=== PATIENT | male | born 1965 | race American Indian/Alaskan Native ===

== ENCOUNTER 2016-10-06 22:17 | Emergency (ER) | payer SELFPAY ==
--- NOTE | 2016-10-06 22:41 | ED PDOC ---
Arrival/HPI - General Historian: Patient - History of Present Illness Time/Duration: Other (3 days) Quality: Aching Context: Work - General Chief Complaint: Upper Extremity Problem/Injury Time Seen by Provider: 10/06/16 22:24 - History of Present Illness Narrative History of Present Illness (Text): 10/06/16 22:37 This 50 yo male presents to this ED c/o left mid forearm, swollen area x 3 days. 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 Wound was bleeding. He applied pressure, and bleeding was controlled. He stated there was an area of swelling on his forearm, with pain. Last tetanus is UKN. Patient has FROM on his extremities. Denies other complains. (Malcolm Arredondo) Past Medical History - Provider Review Nursing Documentation Reviewed: Yes - Psychiatric Hx Substance Use: No Family/Social History - Physician Review Nursing Documentation Reviewed: Yes Family/Social History: No Known Family HX Smoking Status: Former Smoker Hx Alcohol Use: No Hx Substance Use: No Allergies/Home Meds Allergies/Adverse Reactions: Allergies No Known Allergies Allergy (Verified 10/06/16 22:34) Review of Systems - Review of Systems Constitutional: Normal. absent: Fatigue, Weight Change, Fevers, Night Sweats Eyes: Normal. absent: Vision Changes ENT: Normal Respiratory: Normal. absent: SOB, Cough, Sputum, Wheezing Cardiovascular: Normal. absent: Chest Pain, Palpitations Gastrointestinal: Normal Genitourinary Male: Normal. absent: Dysuria, Frequency, Hematuria Musculoskeletal: Normal Skin: Other ((+) left forearm puncture wound.). absent: Rash, Pruritis Neurological: Normal. absent: Headache, Dizziness, Focal Weakness, Gait Changes , Speech Changes, Facial Droop Endocrine: Normal Hemo/Lymphatic: Normal Psychiatric: Normal Physical Exam Temperature: Afebrile Blood Pressure: Normal Pulse: Regular Respiratory Rate: Normal Appearance: Positive for: Well-Appearing, Non-Toxic, Comfortable Pain Distress: None Mental Status: Positive for: Alert and Oriented X 3 - Systems Exam Head: Present: Atraumatic, Normocephalic Pupils: Present: PERRL Extroacular Muscles: Present: EOMI Conjunctiva: Present: Normal Mouth: Present: Moist Mucous Membranes Neck: Present: Normal Range of Motion Back: Present: Normal Inspection Upper Extremity: Present: Normal ROM, NORMAL PULSES, Neurovascularly Intact, Capillary Refill < 2s, Other ((+) 1 cm left mid forearm, mid area, swelling. No cellulitis, or abscess.. N/V intact. No neuro focal deficits of left UE. Sensory and motor are normal. ). No: Cyanosis, Edema, Swelling, Erythema, Temperature Abnormalties, Deformity Lower Extremity: Present: Normal Inspection, NORMAL PULSES, Normal ROM, Neurovascularly Intact, Capillary Refill < 2 s. No: CALF TENDERNESS Neurological: Present: GCS=15, CN II-XII Intact, Speech Normal, Motor Func Grossly Intact, Normal Sensory Function, Normal Cerebellar Funct, Gait Normal, Memory Normal Skin: Present: Warm, Dry, Normal Color. No: Rashes Psychiatric: Present: Alert, Oriented x 3 Vital Signs Temp Pulse Resp BP Pulse Ox 10/06/16 22:30 98.2 F 82 16 148/95 H 98 Medical Decision Making Re-evaluation Time: 23:29 Reassessment Condition: Re-examined, Improved ED Course and Treatment: I was available for consultation during PA evaluation. The chart was reviewed by me, and I agree with disposition. The documented history was done by the physician recruit instructor. The documented physical exam was done by the physician recruit instructor. The documented procedures were done by the physician recruit instructor. (Gabriele Rodriguez) 10/06/16 23:28 FB was removed. patient tolerated procedure well. post procedure, sensory and motor on left UE are normal. n/v intact (Malcolm Arredondo) - RAD Interpretation Narrative RAD Interpretations (Text): 10/06/16 23:00 Forearm x-rays: (+) FB (Malcolm Arredondo) Radiology Orders: 10/06/16 22:46 FOREARM LEFT [RAD] Stat 10/06/16 23:26 FOREARM LEFT [RAD] Stat - Medication Orders Current Medication Orders: Discontinued Medications Amoxicillin/Clavulanate Potassium (Augmentin 875 Mg-125 Mg Tab) 1 tab PO STAT STA PRN Reason: Protocol Stop: 10/06/16 23:27 Last Admin: 10/06/16 23:41 Dose: 1 tab Tetanus/Reduced Diphtheria/Acell Pertussis (Boostrix Vaccine Inj) 0.5 ml IM .ONCE ONE Stop: 10/06/16 22:47 Last Admin: 10/06/16 23:04 Dose: 0.5 ml - Procedure PROCEDURE NOTE (Text): 10/06/16 23:29 PROCEDURE: FOREIGN BODY REMOVAL Performed by the emergency provider Timeout: A timeout to verify the correct patient, procedure, and site was performed immediately prior to the procedure. Indication: Foreign body in left forearm. Procedure: The affected area was anesthetized with Lidocaine with Epi, approx. 1 cc. A 1 cm incision was made on the area where FB was localized. Hemostat was used to expose and to remove FB. Post-procedure: Patient tolerated the procedure well with no immediate complications. The foreign body was removed. There was no bleeding. Patient tolerated the procedure well with no immediate complications. A 4-o, nylon x 1 suture was used to approximate wound. (Malcolm Arredondo) Disposition/Present on Arrival - Present on Arrival Any Indicators Present on Arrival: No History of DVT/PE: No History of Uncontrolled Diabetes: No Urinary Catheter: No History of Decub. Ulcer: No History Surgical Site Infection Following: None - Disposition Have Diagnosis and Disposition been Completed?: Yes Disposition Time: 23:51 - Disposition Diagnosis: Foreign body (FB) in soft tissue Disposition: HOME/ ROUTINE Patient Problems: Current Active Problems Problem Status Onset Foreign body (FB) in soft tissue Acute Condition: GOOD Discharge Instructions (ExitCare): Soft Tissue Foreign Body (ED) Additional Instructions: Call private doctor for follow up visit in 2 days. Suture needs to be removed in 7 days. Keep wound clean and dry for 2 days, then clean wound with soap and water daily. take medication as instructed. Return to emergency if wound becomes redness, drainage or painful. MAKE SURE TO TRA[facility]EL[facility] FOR FURTHER MEDICAL CARE SINCE IT HAPPENED AT WORK Prescriptions: Amoxicillin/Clavulanate [Augmentin 875 MG-125 MG] 1 tab PO BID #14 tab Referrals: Everardo Llamas, [Primary Care Provider] - Follow up with primary Forms: WORK NOTE
[2016-10-06 22:42] VITALS: BP 148/95; PULSE 82; RESP 16; TEMP 98.2; O2SAT 98
[2016-10-06] MEDS ORDERED: TDAP Vaccine 0.5 mL Syr IM ONE (22:46)
[2016-10-06] MEDS ORDERED: Amoxicillin-Clav 875-125 mg Tab PO STA (23:26)
--- NOTE | 2016-10-07 08:59 | RAD ---
PROCEDURE: Radiographs of the Left Forearm HISTORY: s/p FB removal COMPARISON: None available. TECHNIQUE: Frontal and lateral views obtained. FINDINGS: BONES: No fracture or destructive lesion. JOINT SPACES: Unremarkable. OTHER FINDINGS: None. IMPRESSION: Unremarkable radiographs of the left forearm.
--- NOTE | 2016-10-07 09:05 | RAD ---
PROCEDURE: Radiographs of the Left Forearm HISTORY: pain r/o FB COMPARISON: None available. TECHNIQUE: Frontal and lateral views obtained. FINDINGS: BONES: No fracture or destructive lesion. JOINT SPACES: Unremarkable. OTHER FINDINGS: There is 5 mm foreign body on the ventral side of the forearm IMPRESSION: There is 5 mm foreign body on the ventral side of the forearm
== END 2016-10-07 00:25 | disposition home or self-care (01) ==
LOC: ED 22:17 → MERGE 22:17 → ED 10-07 00:25
DX: S50.852A Superficial foreign body of left forearm, initial encounter (principal); W22.8XXA Striking against or struck by other objects, initial encounter; Y93.H3 Activity, building and construction; Y92.89 Other specified places as the place of occurrence of the external cause; Y99.8 Other external cause status; Z23 Encounter for immunization